=== PATIENT | female | born 1950 | race Caucasian/White ===

== ENCOUNTER 2016-07-22 19:06 | Emergency (ER) | payer MEDICARE, BC ==
[~2016-07-22] VITALS: Ht 165.1 cm; Wt 71.2 kg
[2016-07-22 19:07] VITALS: BP 177/79
[2016-07-22] MEDS ORDERED: RANI15TA PO (19:16)
[2016-07-22] MEDS ORDERED: ENAL5TAB PO (19:16)
[2016-07-22] MEDS ORDERED: FIBECHW4 PO (19:16)
[2016-07-22] MEDS ORDERED: MULT1TAB10 PO (19:16)
== END 2016-07-22 21:46 | disposition home or self-care (01) ==
LOC: M ED 20:25
DX: S01.312A Laceration without foreign body of left ear, initial encounter (principal); X58.XXXA Exposure to other specified factors, initial encounter; Y92.89 Other specified places as the place of occurrence of the external cause; Y93.89 Activity, other specified; Y99.8 Other external cause status; I10 Essential (primary) hypertension; Z79.899 Other long term (current) drug therapy; Z88.1 Allergy status to other antibiotic agents